=== PATIENT | female | born 1965 | race Caucasian/White ===

== ENCOUNTER 2021-03-02 08:12 | Outpatient (REF) | payer MEDICAID, SELFPAY ==
[2021-03-04 14:22] LABS: COVID-19 RT-PCR UVMMC Result Negative (Negative)
== END 2021-03-02 08:13 | disposition home or self-care (01) ==
LOC: LBN 08:12
PROVIDERS: Visit Provider Physician Assistant Medical
DX: Z20.822 Contact with and (suspected) exposure to COVID-19 (principal); J06.9 Acute upper respiratory infection, unspecified
CPT/HCPCS: U0003

== ENCOUNTER 2024-11-06 02:12 | Outpatient (CLI) | payer MEDICAID, SELFPAY ==
[2024-11-06 12:13] LABS: ALT 19 U/L (14-59); AST 15 U/L (15-37); Albumin 3.8 g/dL (3.4-5.0); Alkaline Phosphatase 81 U/L (46-116); Anion Gap 9.4 mmol/L (3-11); BUN 15 mg/dL (7-18); Bilirubin, Total 0.5 mg/dL (0.2-1.0); CO2 29.6 mmol/L (21.0-32.0); Calcium 9.2 mg/dL (8.5-10.1); Calculated LDL 120 mg/dL (<100); Chloride 102 mmol/L (98-107); Cholesterol 209 mg/dL (<200); Estimated GFR 98.34 (mL/min/1.73m2); Glucose 100 mg/dL (74-106); HDL Cholesterol 82 mg/dL (>or=50); Potassium 4.1 mmol/L (3.5-5.1); Sodium 141 mmol/L (136-145); TSH (W/Ref FT4) 1.44 uIU/mL (0.36-3.74); Total Protein 7.3 g/dL (6.4-8.2); Triglyceride 37 mg/dL (<150)
== END 2024-11-06 02:13 | disposition home or self-care (01) ==
LOC: LBO 02:12
PROVIDERS: PCP Family Medicine; Visit Provider Family Medicine
DX: E78.00 Pure hypercholesterolemia, unspecified (principal)
CPT/HCPCS: 36415; 80053; 80061; 84443

== ENCOUNTER 2025-01-07 18:06 | Outpatient (REF) | payer MEDICAID, SELFPAY ==
[2025-01-07 21:00] LABS: Abs Immature Grans 0.03 10^3/uL (0.0-0.06); HCT 38.6 % (36.0-46.0); HGB 13.2 g/dL (11.2-15.7); Immature Grans % 0.4 %; MCH 25.8 pg (27.0-33.0); MCHC 34.2 % (32.0-36.0); MCV 75 fL (80-95); MPV 12.2 fL (8.0-11.0); Platelet Count 282 10^3/uL (130-400); RBC 5.12 10^6/uL (3.93-5.22); RDW 13.3 % (11.7-14.6); RDW-SD 35.8 fL; WBC 8.28 10^3/uL (4.4-10.8)
[2025-01-07 21:34] LABS: Anion Gap 7.5 mmol/L (3-11); BUN 24 mg/dL (7-18); CO2 29.5 mmol/L (21.0-32.0); Calcium 10.0 mg/dL (8.5-10.1); Chloride 103 mmol/L (98-107); Estimated GFR 83.78 (mL/min/1.73m2); Glucose 92 mg/dL (74-106); Magnesium 1.9 mg/dL (1.8-2.4); Potassium 3.8 mmol/L (3.5-5.1); Sodium 140 mmol/L (136-145); TSH (W/Ref FT4) 1.85 uIU/mL (0.36-3.74)
== END 2025-01-07 18:07 | disposition home or self-care (01) ==
LOC: LBN 18:06
PROVIDERS: PCP Family Medicine; Visit Provider Physician Assistant Medical
DX: R06.02 Shortness of breath (principal)
CPT/HCPCS: 80048; 83735; 84443; 85025